=== PATIENT | female | born 1960 | race Caucasian/White ===

== ENCOUNTER 2020-01-13 11:29 | Emergency (ER) | payer OTHER ==
[2020-01-13 11:34] VITALS: BP 137/76; PULSE 105; TEMP 98.2; BMI 18.1
== END 2020-01-13 12:29 | disposition home or self-care (01) ==
LOC: FER 11:29
DX: S93.402A Sprain of unspecified ligament of left ankle, initial encounter (principal)
CPT/HCPCS: 73610-TC-LT-FY; 99283-25

== ENCOUNTER 2021-01-04 04:17 | Day surgery (SDC) | payer OTHER ==
[2021-01-02 16:50] VITALS: BMI 17.4
[2021-01-04] MEDS ORDERED: ceFAZolin 2 GRAM PREMIX BAG IVPB ONE (07:50)
[2021-01-04] MEDS ORDERED: oxyCODONE HCL 5 MG TABLET PO PRN (07:59)
[2021-01-04] MEDS ORDERED: DEXTROSE 5%-0.45% SALINE 1,000 ML IV SCH (08:00)
[2021-01-04 09:29] VITALS: TEMP 98
[2021-01-04 10:48] VITALS: BP 137/71; PULSE 86
== END 2021-01-04 10:40 | disposition home or self-care (01) ==
LOC: JASU-SURG 04:17
PROVIDERS: ATTEND Urology
PROC: 0T5B8ZZ Destruction of Bladder, Via Natural or Artificial Opening Endoscopic (ICD-10-PCS; principal; 2021-01-04 07:30)
DX: C67.9 Malignant neoplasm of bladder, unspecified (principal)
CPT/HCPCS: 88305-TC; 94760